=== PATIENT | female | born 1995 | race Caucasian/White ===

== ENCOUNTER 2019-05-04 15:05 | Emergency (ER) | payer OTHER ==
[~2019-05-04] VITALS: Ht 165.1 cm; Wt 89.3 kg
[2019-05-04 15:26] VITALS: BP 136/85; PULSE 83; RESP 18; Ht 165.1 cm; Wt 89.3 kg
--- NOTE | 2019-05-04 16:43 | ERD ---
ER Documentation Chief Complaint Chief Complaint lower back pain x1wk denies injury or painful urination HPI 23-year-old female presents with complaint of lower back pain for the past week. States that she had a similar episode in December after working out which self resolved. This time she states the pain came on gradually without any trauma. Says that she was at an ER yesterday and was told that she needs to get a referral from her primary care provider to see a specialist but she is unable to get into her primary care provider until and she feels that she does not want to wait that long. They prescribed her meloxicam and a muscle relaxant and she said that she just started taking those today. She states she does not want any other pain medications but would rather just continue taking those. She also states she wants to scan to find out what the problem is. Patient is ambulatory. Denies chest pain, SOB, flank pain, dsyuria, hematuria, saddle numbness, incontinence, pain worse at night or when supine, weight loss, night sweats, fatigue, focal neurological defecits, recent bacterial infection, IV drug use, or immunosuppression. Denies past medical history. Denies allergies. Denies surgeries. Denies ETOH, drug, or tobacco use. ROS All systems reviewed and are negative except as per history of present illness. Allergies Allergies: Coded Allergies: No Known Allergy (Unverified , 05/04/19) PMhx/Soc Medical and Surgical Hx: pt denies Medical Hx, pt denies Surgical Hx Hx Alcohol Use: No Hx Substance Use: No Hx Tobacco Use: No Smoking Status: Never smoker FmHx Family History: No diabetes, No coronary disease, No other Physical Exam Vitals Vital Signs Date Temp Pulse Resp B/P (MAP) Pulse Ox O2 O2 Flow FiO2 Time Delivery Rate 05/04/19 98.3 83 18 136/85 98 15:26 (102) Physical Exam Const: No acute distress Head: Atraumatic Eyes: Normal Conjunctiva ENT: Normal External Ears, Nose and Mouth. Neck: Full range of motion. No meningismus. Resp: Clear to auscultation bilaterally Cardio: Regular rate and rhythm, no murmurs Abd: Soft, non tender, non distended. Normal bowel sounds Skin: No petechiae or rashes Back: No midline or flank tenderness. Full range of motion. No bony deformities or step-offs. Ext: No cyanosis, or edema. 5 out of 5 strength in lower extremities. Distal pulses and sensation intact. No saddle numbness. Neur: Awake and alert Psych: Normal Mood and Affect Procedures/MDM MDM: Patient has an appointment with her primary care provider to evaluate her back pain on . I told patient that she should keep this appointment as a specialist will not come to the ER to see her unless she is having a medical emergency which she has not. I offered the patient pain medication in the ER as well as a prescription for pain medication but she declined it saying she would just continue taking the medication prescribed to her yesterday. I told the patient she can come back at any time if she experiences new or worsening symptoms. I have low suspicion for epidural abscess, cauda equina, abdominal aortic aneurysm, pyelonephritis, aortic dissection, spinal fracture, or other emergent conditions based on patient history and exam findings. Patient told if they experience leg weakness or numbness, or incontinence they need to return to the ER immediately. Patient discharged with strict ER precautions. Patient advised to follow up with PMD. All questions answered at discharge. Departure Diagnosis: Primary Impression: Back pain Back pain location: low back pain Chronicity: chronic Back pain laterality: unspecified Sciatica presence: without sciatica Qualified Codes: M54.5 - Low back pain; G89.29 - Other chronic pain Condition: TYLER Motley May 04, 2019 16:42
== END 2019-05-04 16:49 | disposition home or self-care (01) ==
LOC: FTE 15:05
DX: M54.5 Low back pain (principal)
CPT/HCPCS: 99282